=== PATIENT | male | born 1970 | race Caucasian/White ===

== ENCOUNTER 2017-07-02 12:24 | Observation (INO) | payer BC ==
[2017-07-02] MEDS ORDERED: Nitroglycerin 0.4 MG TAB (25 Tab Bottle) ONE (13:00)
--- NOTE | 2017-07-02 14:33 | RAD ---
CHEST PA AND LATERAL: 07/02/17 HISTORY: 46-year-old male with chest pain. Heart size is normal. The lungs are clear. No pneumonia, edema, pleural effusion or other acute proc ess. IMPRESSION: No acute intrathoracic disease. Stable from prior study. POS: [facility]
[2017-07-02 14:35] LABS: #Basophils 0.1 thou/uL (0.0-0.2); #Eosinphils 0.3 thou/uL (0.0-0.7); #Lymphocytes 2.4 thou/uL (1.20-3.40); #Neutrophils 4.2 thou/uL (1.40-6.50); %Basophils 0.7 % (0.0-1.0); %Eosinophils 3.4 % (0.0-10.0); %Lymphocytes 30.1 % (21.0-51.0); %Monocytes 12.2 % (0.0-10.0); Hematocrit 49.3 % (42.0-52.0); Mean Platelet Volume 6.9 fL (7.4-10.4); Red Blood Cell (RBC) Count 5.21 mill/uL (4.70-6.10); White Blood Cell (WBC) Count 7.9 thou/uL (4.8-10.8)
[2017-07-02 14:59] LABS: ALT (SGPT) 37 U/L (8-55); AST (SGOT) 25 U/L (5-34); Alkaline Phosphatase 77 U/L (40-150); Anion Gap 12 mmol/L (10-20); BUN (Urea Nitrogen) 12 mg/dL (8.9-20.6); Bilirubin, Total 0.6 mg/dL (0.2-1.2); Calc. Creatinine Clearance 0 mL/min (70-130); Calcium 9.6 mg/dL (7.8-10.44); Carbon Dioxide 23 mmol/L (22-29); Chloride 107 mmol/L (98-107); Estimated GFR-MDRD 64; Globulin 3.1 g/dL (2.4-3.5); Protein, Total 7.4 g/dL (6.0-8.3)
[2017-07-02 15:02] LABS: Troponin I Less than 0.010 ng/mL (< 0.028)
[2017-07-02 17:38] LABS: Troponin I 0.031 ng/mL (< 0.028)
[2017-07-02] MEDS ORDERED: Acetaminophen 325 MG TAB PO PRN (18:37)
[2017-07-02] MEDS ORDERED: Bisacodyl 5 MG TAB PO PRN (18:37)
[2017-07-02] MEDS ORDERED: Acetaminophen 650 MG Suppository PR PRN (18:37)
[2017-07-02] MEDS ORDERED: Nitroglycerin 0.4 MG TAB (25 Tab Bottle) PO PRN (18:37)
[2017-07-02] MEDS ORDERED: Aspirin 325 MG TAB PO SCH (19:00)
--- NOTE | 2017-07-02 19:17 | HP ---
PRIMARY CARE PHYSICIAN: Mehrdad León M.D. CHIEF COMPLAINT: Chest pain. HISTORY OF PRESENT ILLNESS: Mr. Gilliland is a pleasant 46-year-old gentleman who was seen at [facility] on 07/02/2017. He reports that he was working with his motorcycle when he developed pain across his mid chest. He describes it as pressure-like sensation, 8/10 at its worst, initially steady, subsequent on and off, no known aggravating factors, eventually relieved with nitrates. It was accompanied by shortness of breath. It is not accompanied by nausea or lightheadedness. It lasted a total of approximately 2 hours. It was not radiating, but it was accompanied by tingling in his lower extremities. REVIEW OF SYSTEMS: The following complete review of systems was negative, unless otherwise mentioned in the HPI or below: Constitutional: Weight loss or gain, sense of well-being, ability to conduct usual activities, exercise tolerance. Skin/Breast: Rash, itching, changes in hair growth or loss, nail changes, breast lumps, tenderness, swelling, nipple discharge. Eyes: Vision, double vision, tearing, blind spots, pain. ENT/Mouth: Headaches (location, time of onset, duration, precipitating factors), vertigo, lightheadedness, injury. Vision, double vision, tearing, blind spots, pain, nose bleeding, colds , obstruction, discharge, dental difficulties, gingival bleeding, dentures, neck stiffness, pain, tenderness, masses in thyroid or other areas. Cardiovascular: Precordial pain, substernal distress, palpitations, syncope, dyspnea on exertion, orthopnea, nocturnal paroxysmal dyspnea, edema, cyanosis, hypertension, heart murmurs, varicosities, phlebitis, claudication. Respiratory : Pain, shortness of breath, wheezing, stridor, cough, hemoptysis, fever or night sweats. Gastrointestinal: Poor appetite, dysphagia, indigestion, abdominal pain, heartburn, eructation, nausea, vomiting, hematemesis, jaundice, constipation, or diarrhea, abnormal stools (bonita-colored, tarry, bloody, greasy , foul smelling), flatulence, hemorrhoids, recent changes in bowel habits. Genitourinary: Urgency, frequency, dysuria, nocturia, hematuria, polyuria, oliguria, unusual (or change in) color of urine, stones, hesitancy, change in size of stream, dribbling, acute retention or incontinence, libido, potency. Musculoskeletal: Pain, swelling, redness or heat of muscles or joints, limitation, of motion, muscular weakness, atrophy, cramps. Neurologic/ Psychiatric: Convulsions, paralyses, tremor, incoordination, paresthesias, difficulties with memory of speech, sensory or motor disturbances, or muscular coordination (ataxia, tremor), emotional problems, anxiety, depression, previous psychiatric care, unusual perceptions, hallucinations. Allergy/ Immunologic: Skin rash, anemia, bleeding tendency, polydipsia, polyuria, intolerance to heat or cold. PAST MEDICAL HISTORY: Significant for dyslipidemia, coronary artery disease. He had a cardiac catheterization on 03/29/2017, which showed a previous stent in proximal LAD as well as a 20% stenosis in the proximal circumflex, 7 mm length. He was advised medical management and aggressive risk factor management. PAST SURGICAL HISTORY: Significant for appendectomy and PCI with cardiac stent x1. FAMILY HISTORY: No family history of premature coronary artery disease. SOCIAL HISTORY: The patient drinks alcohol occasionally. He denies recreational drug use. He smokes half a pack of cigarettes a day. ALLERGIES: CODEINE and CINNAMON. CURRENT MEDICATIONS: Aspirin 325 mg daily, atorvastatin 80 mg daily, metoprolol 12.5 mg 2 times a day. He reports that instead of taking it 2 times a day, he is taking at 25 mg daily. PHYSICAL EXAMINATION: GENERAL: Mr. Gilliland is awake and alert, not in acute distress. VITAL SIGNS: Blood pressure is 136/78, pulse is 76, he is breathing at rate of 17 and saturating 98% on room air. He is afebrile. EYES: No scleral icterus. No conjunctival pallor. ENT: Moist mucosal membranes, no oropharyngeal erythema or exudates. NECK: Supple, nontender, normal range of movement, trachea is midline. RESPIRATORY: Accessory muscles of breathing are not active. Chest wall movements are symmetric bilaterally. LUNGS: Clear to auscultation without wheeze, rhonchi or crepitations. ABDOMEN: Soft, nontender, bowel sounds are heard, no hepatomegaly, no splenomegaly. CARDIOVASCULAR: S1 and S2 are heard, regular. Peripheral pulses palpable. No carotid bruit, no pericardial rub. NEUROLOGIC: Cranial nerves II-XII are intact. Deep tendon reflexes are 2+. MUSCULOSKELETAL: Power is 5/5 in all 4 extremities. Normal range of movement at all major extremity joints. SKIN: No rashes or subcutaneous nodules. He has several tattoos. LYMPHATIC: No cervical lymphadenopathy. PSYCHIATRIC: Normal mood, normal affect, patient is oriented to person, place, and time. LABORATORY DATA: Mr. Gillliand's labs and investigations were reviewed. I reviewed his electrocardiogram, which shows normal sinus rhythm, no ST changes to suggest an acute coronary syndrome. I also reviewed his chest x-ray, which does not show any pulmonary infiltrates. Laboratory investigations show an unremarkable CBC, normal comprehensive metabolic profile and troponin I which was normal at 1425 hours, but climbed into an indeterminate range at 1708 hours. BNP is normal. ASSESSMENT AND PLAN: Mr. Gilliland is a pleasant 46-year-old gentleman who was seen at [facility] on 07/02/2017. His problem list includes: 1. Chest pain: Etiology unclear. He had relatively normal cardiac catheterization in 03/2017. However, his symptoms being relieved by nitrospray as well as indeterminate troponin I are reasons he is being admitted to the hospital on observation status for telemetry monitoring and for rechecking troponin. We will also recheck D-dimer to rule out pulmonary embolism. 2. Dyslipidemia: Continue atorvastatin. 3. Hypertension: The patient has been advised to take metoprolol as directed. He reports that he is unable to split his metoprolol tablet in half. He may need to be changed to metoprolol succinate at the time of discharge to ensure around the clock beta trisha activity. 5. Tobacco abuse: The patient has been counseled regarding tobacco cessation. We will start nicotine replacement therapy. Many thanks for allowing me to participate in your patient's care. Please feel free to contact me with any questions or concerns. LEVEL OF RISK: High. LEVEL OF COMPLEXITY: High. MTDD
[2017-07-02 19:40] VITALS: BMI 24.5
[2017-07-02 20:18] LABS: Troponin I 0.105 ng/mL (< 0.028)
[2017-07-02] MEDS: Metoprolol Tartrate 25 MG TAB PO SCH (20:47)
[2017-07-02] MEDS: Atorvastatin Calcium 40 MG TAB PO SCH (20:47)
[2017-07-02] MEDS: Nicotine 14 MG PATCH TD SCH (22:50)
[2017-07-02 23:12] LABS: Amphetamine Not Detected (NotDetected); Methadone Not Detected (NotDetected); Methamphetamine Not Detected (NotDetected)
[2017-07-03 04:34] LABS: #Basophils 0.1 thou/uL (0.0-0.2); #Eosinphils 0.3 thou/uL (0.0-0.7); #Lymphocytes 2.4 thou/uL (1.20-3.40); #Monocytes 0.8 thou/uL (0.11-0.59); #Neutrophils 2.6 thou/uL (1.40-6.50); %Basophils 1.9 % (0.0-1.0); %Eosinophils 5.5 % (0.0-10.0); %Lymphocytes 38.8 % (21.0-51.0); Hematocrit 46.1 % (42.0-52.0); Mean Platelet Volume 6.8 fL (7.4-10.4); Red Blood Cell (RBC) Count 4.88 mill/uL (4.70-6.10); White Blood Cell (WBC) Count 6.3 thou/uL (4.8-10.8)
[2017-07-03 04:58] LABS: Anion Gap 12 mmol/L (10-20); BUN (Urea Nitrogen) 17 mg/dL (8.9-20.6); Calc. Creatinine Clearance 92 mL/min (70-130); Carbon Dioxide 25 mmol/L (22-29); Chloride 105 mmol/L (98-107); Estimated GFR-MDRD 64
[2017-07-03] MEDS ORDERED: Enoxaparin Sodium 40 MG/0.4 ML SYRINGE SC SCH (09:00)
[2017-07-03] MEDS: Metoprolol Tartrate 25 MG TAB PO SCH ×2 (10:19→20:23)
[2017-07-03] MEDS: Aspirin 325 MG TAB PO SCH (10:19)
[2017-07-03 12:15] LABS: Troponin I 0.416 ng/mL (< 0.028)
[2017-07-03] MEDS ORDERED: Communication Order-Pharmacy FS SCH (12:45)
[2017-07-03] MEDS ORDERED: Enoxaparin Sodium 100 MG/ML SYRINGE SC SCH (13:00)
--- NOTE | 2017-07-03 13:52 | CON ---
DATE OF ADMISSION: 07/02/2017 DATE OF CONSULTATION: 07/03/2017 INDICATION FOR CONSULTATION: A 46-year-old gentleman with a history of known coronary artery diseas e, status post angioplasty and stent placement to the left anterior descending with chest pain and a bnormal cardiac enzymes. HISTORY OF PRESENT ILLNESS: This is a very unfortunate 46-year-old gentleman who continues to smoke , has a history of coronary artery disease and hypertension as well as family history of coronary ar norma disease who presented to the emergency room after having chest pain which started yesterday scott und 11:00 when he was working on his motorcycle. He originally thought was some chest discomfort. He presented to the emergency room due to his previous history of coronary disease. He was given ni troglycerin and I believe the pain has resolved since he was given nitroglycerin, but previously he did not have any relief of the pain when he stopped working on the motorcycle and just rested. He d id not take any nitroglycerin at home. He describes now to having the discomfort as being a slight faint, dull, but still has some discomfort. EKG is unremarkable. His cardiac enzymes have trended upwards, the initial set was negative at 0.01. The second set was 0.031 and the third set was 0.010 5 and the fourth set is now 0.416. The MBs are negative. His EKG does not show any significant ST segment elevations or T-wave inversions that would indicate acute ischemic event. He did undergo [facility] catheter[facility] on 04/17/2017. He had a stent in the proximal left anterior descending artery which was a 4.0 x 20 mm stent placed in 05/2014. He also has a left circumflex stenosis about 20% ejection fraction is 55%. The right coronary was free of any significant disease. It was not clear ed by the results of the cardiac catheterization. If there was any evidence of in-stent restenosis or further disease. Ejection fraction was 55%. At this time, we will continue to monitor him very carefully for any changes in his EKG or either for the further elevation of cardiac enzymes. PAST MEDICAL HISTORY: Significant for coronary artery disease, hyperlipidemia, hypercholesterolemia , history of angioplasty, stent placement, history of appendectomy. SOCIAL HISTORY: He is . He continues to smoke. He says he is trying to stop smoking, but h e at least still continues to smoke at least half a pack a day. FAMILY HISTORY: Noncontributory at this time. ALLERGIES: CODEINE. MEDICATIONS: At home include atorvastatin, metoprolol, aspirin. At this time, he has been placed o n aspirin as well as atorvastatin, Lovenox at 40, will increase up to 1 mg per mg/kg b.i.d., metopro lol 12.5 mg b.i.d., and a Nicoderm patch and nitroglycerin p.r.n. REVIEW OF SYSTEMS: Twelve-point review of systems is unremarkable. He denies any new HEENT complai nts such as visual changes, hearing loss or tinnitus. No pulmonary complaints such as asthma, emphy sema or bronchitis. No GI complaints such as nausea, vomiting, diarrhea. No complaints such as dysuria, polyuria, or hematuria. No musculoskeletal complaints such as myalgias restrictions or art hralgias. Neurologic: No history of seizures or syncope. He mainly complains of the chest discomf ort. PHYSICAL EXAMINATION: GENERAL: Reveals a well-developed, well-nourished gentleman. VITAL SIGNS: Blood pressure 117/76, heart rate is 64 and regular, temperature is afebrile, respirat ory rate 16, O2 saturation 96%. HEENT: Reveals the head to be normocephalic and atraumatic. NECK: Carotid pulses are present. There were no bruits, no JVD. Thyroid is not enlarged. Oral mu cosa was pink and moist. CHEST: Clear to auscultation without rales, rhonchi or wheezing. CARDIOVASCULAR: Exam reveals a regular rate and rhythm, normal S1, S2. There is no S3, S4. There were no significant murmurs, heaves, thrills, bruits or rubs noted. ABDOMEN: Soft and nontender with positive bowel sounds. No organomegaly or masses noted. Femoral pulses are present. EXTREMITIES: Showed no clubbing, cyanosis or edema. Pedal pulses are also present. NEUROLOGIC: He does have multiple tattoos, which did have no evidence of infection. Neurologically , he appears to be intact. SKIN: Warm and dry. LABORATORY DATA: As noted above. Creatinine is 1.22, potassium 4.0. Hemoglobin 15.4. Cardiac enz ymes are as noted above. IMPRESSION: 1. Chest pain with abnormal cardiac enzymes with a history of coronary artery disease, angioplasty and stent placement to the proximal left anterior descending artery. We will continue to follow him very carefully. We will add full dose Lovenox and will continue with the nitroglycerin paste. Magalys uld he develop further pain or EKG changes that he may need to undergo urgent cardiac catheterizatio n, at this time appears to be relatively stable. He may need to undergo cardiac catheterization meir orrow for further evaluation of the proximal left anterior descending artery stent. If this has bec ome worse, he may need to have a repeat stent placement if there is narrowing within the stent. Oth erwise, he may need eventually undergo bypass surgery with a left internal mammary artery to the lef t anterior descending artery due to the proximity to the left main of the previously placed stent. 2. History of tobacco abuse. He will need some type of counseling at least assistance to help him to stop smoking. He said he has been trying, but continues to smoke a half a pack a day. 3. History of hypercholesterolemia. There was no LDL check at this time. We may need to do that a s an outpatient. 4. Hypertension. This is well controlled at the present time. Further care of the patient will be determined by Dr. Suero when he sees the patient tomorrow. In the meantime, we will keep the p atient n.p.o. for possible cardiac catheterization tomorrow.
--- NOTE | 2017-07-03 14:47 | PDOC.PN ---
- Subjective Encounter Start Date: 07/03/17 Encounter Start Time: 11:00 -: old records requested/rev Pt seen and examined. Chart reviewe din its entrety. Case discussed with Dr Hernandez face to face. Pt had CP last evneing similar in character to his previous episode with LAD stend, but not as severe. biomarkaers have trended up and have now exceeded the NSTMEI threshold. Dr Prince has seen since i have and prior to this note and has ordered another set of markers, and made NPO. possible PTCA tomorrow, later today if he has more CP, lovenox given. no f/C, no cough, no SOB, no sputum production. No N/V/D/C 10 point ROS performed and neg for all systems except as above - Objective Resuscitation Status: FULL MAR Reviewed: Yes Vital Signs & Weight: Vital Signs (12 hours) Temp Pulse Resp BP Pulse Ox 07/03/17 11:42 98.0 F 64 16 117/76 96 07/03/17 08:21 97.5 F L 64 16 07/03/17 07:25 97.5 F L 64 16 115/70 96 07/03/17 04:00 98.2 F 72 14 110/65 96 Weight Weight 191 lb 9.6 oz I&O: 07/02/17 07/03/17 07/04/17 06:59 06:59 06:59 Intake Total 720 250 Output Total 200 Balance 520 250 Result Diagrams: 07/03/17 04:05 07/03/17 04:05 Radiology Reviewed by me: Yes EKG Reviewed by me: Yes Phys Exam - Physical Examination Constitutional: NAD HEENT: PERRLA, moist MMs, sclera anicteric, oral pharynx no lesions Neck: no nodes, no JVD, supple, full ROM Respiratory: no wheezing, no rales, no rhonchi, clear to auscultation bilateral Cardiovascular: RRR, no significant murmur, no rub Gastrointestinal: soft, non-tender, no distention, positive bowel sounds Musculoskeletal: no edema, pulses present Neurological: non-focal, normal sensation, moves all 4 limbs Lymphatic: no nodes Psychiatric: normal affect, A&O x 3 Skin: no rash, normal turgor, cap refill <2 seconds Dx/Plan (1) CAD (coronary artery disease) Code(s): I25.10 - ATHSCL HEART DISEASE OF [place] CORONARY ARTERY W/O ANG PCTRS Status: Acute Qualifiers: Coronary Disease-Associated Artery/Lesion type: [place] artery [place] vs. transplanted heart: [place] heart Associated angina: with unstable angina Qualified Code(s): I25.110 - Atherosclerotic heart disease of [place] coronary artery with unstable angina pectoris (2) HTN (hypertension) Code(s): I10 - ESSENTIAL (PRIMARY) HYPERTENSION Status: Chronic Qualifiers: Hypertension type: essential hypertension Qualified Code(s): I10 - Essential (primary) hypertension (3) HLD (hyperlipidemia) Code(s): E78.5 - HYPERLIPIDEMIA, UNSPECIFIED Status: Chronic Qualifiers: Hyperlipidemia type: unspecified Qualified Code(s): E78.5 - Hyperlipidemia , unspecified (4) NSTEMI (non-ST elevated myocardial infarction) Code(s): I21.4 - NON-ST ELEVATION (NSTEMI) MYOCARDIAL INFARCTION Status: Acute - Plan cont current plan of care * .
[2017-07-03 16:06] LABS: Troponin I 0.422 ng/mL (< 0.028)
[2017-07-03 20:10] LABS: Critical Call Chem Troponin I RESULT DECREASING; Troponin I 0.377 ng/mL (< 0.028)
[2017-07-03] MEDS: Atorvastatin Calcium 40 MG TAB PO SCH (20:23)
[2017-07-03] MEDS: Nicotine 14 MG PATCH TD SCH (20:29)
[2017-07-04] MEDS: Aspirin 325 MG TAB PO SCH (05:36)
[2017-07-04] MEDS: Metoprolol Tartrate 25 MG TAB PO SCH (05:36)
[2017-07-04 05:39] LABS: #Basophils 0.1 thou/uL (0.0-0.2); #Eosinphils 0.3 thou/uL (0.0-0.7); #Lymphocytes 2.7 thou/uL (1.20-3.40); #Monocytes 0.7 thou/uL (0.11-0.59); %Basophils 1.1 % (0.0-1.0); %Eosinophils 4.6 % (0.0-10.0); %Lymphocytes 46.7 % (21.0-51.0); %Monocytes 12.6 % (0.0-10.0); Hematocrit 46.3 % (42.0-52.0); Mean Platelet Volume 7.1 fL (7.4-10.4); Red Blood Cell (RBC) Count 4.91 mill/uL (4.70-6.10); White Blood Cell (WBC) Count 5.7 thou/uL (4.8-10.8)
[2017-07-04 06:03] LABS: Anion Gap 11 mmol/L (10-20); BUN (Urea Nitrogen) 14 mg/dL (8.9-20.6); Calc. Creatinine Clearance 109 mL/min (70-130); Calcium 8.7 mg/dL (7.8-10.44); Carbon Dioxide 24 mmol/L (22-29); Chloride 106 mmol/L (98-107); Estimated GFR-MDRD 77
[2017-07-04] MEDS ORDERED: Fentanyl 100 MCG/2 ML VIAL ONE (07:42)
[2017-07-04] MEDS ORDERED: Nitroglycerin 100MG/250ML BOT 250 ML ONE (07:45)
[2017-07-04] MEDS ORDERED: Midazolam HCl 2 mg/2 ml Vial ONE (07:45)
[2017-07-04] MEDS ORDERED: Nitroglycerin 0.4 MG TAB (25 Tab Bottle) SL PRN (08:56)
[2017-07-04] MEDS ORDERED: Sodium Chloride 0.9% 200 ML IV SCH (09:00)
[2017-07-04 11:06] VITALS: BP 115/72; TEMP 97.7
[2017-07-04] MEDS ORDERED: Iopamidol 370 76% 100 ML VIAL ONE (14:08)
--- NOTE | 2017-07-04 16:01 | DIS ---
DATE OF ADMISSION: 07/02/2017 DATE OF DISCHARGE: 07/04/2017 DISCHARGE DIAGNOSES: 1. Non-ST elevation myocardial infarction. 2. Coronary artery vasospasm. 3. History of coronary artery disease. 4. Hyperlipidemia. 5. Hypertension. 6. Ongoing tobacco abuse. CONSULTATION: Cardiology initially Dr. Orr followed by Dr. Suero. PROCEDURES: Percutaneous transluminal coronary angiography by Dr. Suero on 07/04/2017. HISTORY AND PHYSICAL: Mr. Gilliland is a 46-year-old male who presented to the emergency department on 07/02/2017 for complaints of chest pain. He had negative workup initially, but did have a fairly de cent story and a history of chest pain due to coronary artery disease. He was subsequently admitted to the hospital. HOSPITAL COURSE: The patient seen and examined by Dr. Alfonso, he was placed on cardioprotective medi cations overnight, Cardiology was consulted, and serial cardiac biomarkers were obtained. The patient did well overnight with no further chest pain. On 07/03/2017, he was seen by Dr. Orr and serial cardiac biomarker did show an uptrend in the tropo nins. That afternoon troponin did peak at 0.4, and so arrangements were made for him to undergo coronary a ngiography in the morning on 07/04/2017. Overnight on 07/03/2017 to 07/04/2017 no further pain, went to the laboratory equipment cleaner early, where he was foun d to have vasospasm with slow flow in the LAD that responded to intraluminal nitroglycerin. He was subsequently encouraged to stop smoking, added long-acting nitroglycerin to his regimen, and cleared for discharge once his time of lying flat was completed. PHYSICAL EXAMINATION: The patient was seen and examined on the day of discharge. Discharge plan an d disposition were discussed with the patient [id number] at the bedside in the presence of his wif e. DISCHARGE MEDICATIONS: 1. Isosorbide mononitrate 30 mg p.o. daily. 2. Ibuprofen 800 mg p.o. q.8 hours p.r.n. 3. Lipitor 80 mg p.o. at bedtime. 4. Aspirin 325 mg daily. 5. Metoprolol 12.5 mg p.o. b.i.d. I believe this was decreased in response to adding in the Imdur. 6. Nitrostat 0.4 mg sublingual q.5 minutes. Prescription sent for the lower dose of Lopressor, Nitrostat, and isosorbide mononitrate. FOLLOWUP APPOINTMENTS: 1. Primary care physician within a week. 2. Dr. Suero in 2-3 weeks. DISCHARGE ACTIVITY: Per cardiopulmonary limits. DISCHARGE DIET: Heart healthy. DISCHARGE CONDITION: Stable. DISPOSITION: Being discharged to home via private vehicle. INSTRUCTIONS: 1. To quit smoking. 2. Return to emergency department or call Dr. Suero for return of chest pain.
== END 2017-07-04 14:24 | disposition home or self-care (01) ==
LOC: ERS 12:24 → 2SW 18:10
PROVIDERS: ADMIT Internal Medicine; ATTEND Internal Medicine
DX: I21.4 Non-ST elevation (NSTEMI) myocardial infarction (principal); I10 Essential (primary) hypertension; I25.119 Atherosclerotic heart disease of native coronary artery with unspecified angina pectoris; F17.210 Nicotine dependence, cigarettes, uncomplicated; E78.5 Hyperlipidemia, unspecified; Z79.82 Long term (current) use of aspirin; Z79.899 Other long term (current) drug therapy; Z88.5 Allergy status to narcotic agent; Z88.8 Allergy status to other drugs, medicaments and biological substances; Z98.61 Coronary angioplasty status; Z95.818 Presence of other cardiac implants and grafts; Z90.49 Acquired absence of other specified parts of digestive tract; Z98.890 Other specified postprocedural states
CPT/HCPCS: 36415; 71020; 76942; 80048; 80053; 80306; 82553; 83880; 84484; 85025; 85379; 93005; 93458; 93798; 96372; 99152; C1769; G0378; J1644; J1650; J2250; J3010

== ENCOUNTER 2020-01-15 13:43 | Observation (INO) | payer BC ==
--- NOTE | 2020-01-15 14:26 | RAD ---
EXAM: Chest PA and lateral: HISTORY: Chest pain, midsternal COMPARISON: 07/02/2017 FINDINGS: Heart: Normal cardiac silhouette Aorta: Unremarkable Pulmonary vessels: Normal Costophrenic angles: Costophrenic angles are clear. Lungs: No consolidation or masses. Pneumothorax: No pneumothorax Osseous structures: No osseous abnormalities IMPRESSION: No acute cardiopulmonary process.
[2020-01-15 14:50] LABS: #Eosinphils 0.2 thou/uL (0.0-0.7); #Lymphocytes 1.9 thou/uL (1.20-3.40); #Monocytes 0.7 thou/uL (0.11-0.59); #Neutrophils 4.9 thou/uL (1.40-6.50); %Basophils 0.4 % (0.0-1.0); %Eosinophils 2.5 % (0.0-10.0); %Lymphocytes 24.5 % (21.0-51.0); %Monocytes 9.3 % (0.0-10.0); %Neutrophils 63.3 % (42.0-75.0); Hemoglobin 15.5 g/dL (14.0-18.0); Mean Corpuscular HGB CONC 33.3 g/dL (32.0-36.0); Mean Corpuscular Hemoglobin 30.4 pg (27.0-31.0); Mean Corpuscular Volume 91.3 fL (78.0-98.0); Mean Platelet Volume 7.1 fL (7.4-10.4); Platelet Count 231 thou/uL (130-400); RBC Distribution Width 12.1 % (11.5-14.5); Red Blood Cell (RBC) Count 5.11 mill/uL (4.70-6.10); White Blood Cell (WBC) Count 7.7 thou/uL (4.8-10.8)
[2020-01-15 15:14] LABS: ALT (SGPT) 42 U/L (8-55); AST (SGOT) 27 U/L (5-34); Albumin 4.4 g/dL (3.5-5.0); Alkaline Phosphatase 101 U/L (40-110); Anion Gap 14 mmol/L (10-20); BUN (Urea Nitrogen) 15 mg/dL (8.9-20.6); Bilirubin, Total 0.7 mg/dL (0.2-1.2); CK (CPK) 361 U/L (30-200); Calc. Creatinine Clearance 0 mL/min (70-130); Calcium 9.5 mg/dL (7.8-10.44); Carbon Dioxide 23 mmol/L (22-29); Chloride 106 mmol/L (98-107); Estimated GFR-MDRD 63; Glucose 91 mg/dL (70-105); Lipase 21 U/L (8-78); Potassium 3.9 mmol/L (3.5-5.1); Protein, Total 7.4 g/dL (6.0-8.3); Sodium 139 mmol/L (136-145)
[2020-01-15] MEDS ORDERED: Aspirin Chewable 81 MG TAB ONE (15:48)
[2020-01-15 18:49] LABS: Troponin I 0.059 ng/mL (< 0.028)
--- NOTE | 2020-01-15 19:29 | HP ---
PRIMARY CARE PHYSICIAN: Mehrdad León MD CHIEF COMPLAINT: Chest pain. HISTORY OF PRESENT ILLNESS: The patient is a very pleasant 49-year-old male with past medical history significant for an OR in 2014 where he received one stent to the LAD and another OR in 2017 treated medically. He is a patient of Dr. Suero who presents to the ER today for chest pain that started after he was shoveling stone outside in the heat. He does state this felt like the second heart attack that he had in 2017. When the pain occurred it felt like he had been kicked in the chest. He became clammy, had numbness to his right leg and tingling in his right hand, and he experienced shortness of breath but no nausea. He took one sublingual nitroglycerin and stated that it helped after about 45 minutes. He then proceeded to take a shower and drove himself to the ER. Of note, he had a negative stress test August 2019 as part of his job requirement. In the ER today, they performed an EKG and lab work along with a chest x-ray. He will be admitted to telemetry under observation status. PAST MEDICAL HISTORY: OR in 2014 with one stent to the LAD and another OR in 2017, hyperlipidemia. PAST SURGICAL HISTORY: Stent placement and an appendectomy. ALLERGIES: CODEINE AND CINNAMON CAUSES ANGIOEDEMA. MEDICATIONS: 1. Atorvastatin 80 mg p.o. at bedtime. 2. Metoprolol tartrate 12.5 mg p.o. b.i.d. 3. Aspirin 325 mg p.o. daily. 4. Isosorbide mononitrate 30 mg q.a.m. 5. Nitroglycerin sublingual as needed. SOCIAL HISTORY: The patient lives at home with his . He is a driver lifter of sanitation truck. He drinks on average every weekend socially but not to excess. He no longer smokes , he quit in 2017 after his heart attack, but still continues to dip daily. He goes through a can every three days. He denies any illegal drug usage. FAMILY HISTORY: His mother from cancer. REVIEW OF SYSTEMS: All other review of systems are negative unless noted in the HPI. PHYSICAL EXAMINATION: VITAL SIGNS: Blood pressure 122/78, pulse 74, respiratory rate 16, temp 98.8, O2 saturation 98% on room air. GENERAL: The patient is pleasant and appears his stated age. HEAD: Atraumatic, normocephalic. NECK: Normal range of motion. Trachea midline. No lymphadenopathy. CARDIOVASCULAR: Regular rate and rhythm. No murmurs, no gallops, no rubs. RESPIRATORY: Clear to auscultation bilaterally. No wheezing. No rales. EXTREMITIES: Normal range of motion. No edema noted. NEUROLOGIC: Awake, alert, and oriented. PSYCH: Normal affect. Normal behavior. LABORATORY DATA: EKG shows sinus rhythm, pulse of 76. BNP 10.7. Lipase 21. CK 361. Sodium 139, potassium 3.9, chloride 106, BUN 15, creatinine 1.21, estimated GFR is 30. Glucose 91. White blood cells 7.7, hemoglobin 15.5, hematocrit 46.6. Troponin negative. Chest x-ray showed no acute cardiopulmonary process. IMPRESSION: 1. Chest pain, acute, stable. 2. Hyperlipidemia, chronic, stable. PLAN: GI prophylaxis with Pepcid 20 mg p.o. b.i.d. DVT prophylaxis, Lovenox 40 mg subcu daily. We will continue to trend his troponins throughout the night while we monitor him on telemetry. He had a recent negative stress test in August that was completed because it was required for his job. We will consult his mainframe analyst, Dr. Suero, in the morning to see him, it is especially concerning that it feels like the past heart attack he had. He will be on a heart healthy diet until midnight and then NPO for his cardiology consult. The patient wishes to be a full code. His designated decision maker is his , Jocelyne Gilliland. Her phone number is [phone]. The patient was discussed with Dr. Hancock. Job ID: [id number] [facility]
[2020-01-15 21:49] LABS: Troponin I 0.179 ng/mL (< 0.028)
[2020-01-15] MEDS ORDERED: Acetaminophen 325 MG TAB PO PRN (22:08)
[2020-01-15] MEDS ORDERED: Nitroglycerin 0.4 MG TAB (25 Tab Bottle) PO PRN (22:08)
[2020-01-15] MEDS ORDERED: Famotidine 20 MG TAB PO SCH (22:45)
[2020-01-15] MEDS ORDERED: Nitroglycerin 2% Ointment 1 INCH/1 GM Packet TOP SCH (22:45)
[2020-01-15] MEDS ORDERED: Metoprolol Tartrate 25 MG TAB PO SCH (22:45)
[2020-01-15] MEDS: Sodium Chloride 0.9% 1,000 ML IV SCH (22:50)
[2020-01-16 04:50] LABS: #Eosinphils 0.2 thou/uL (0.0-0.7); #Lymphocytes 2.2 thou/uL (1.20-3.40); #Monocytes 0.7 thou/uL (0.11-0.59); #Neutrophils 2.6 thou/uL (1.40-6.50); %Basophils 0.6 % (0.0-1.0); %Eosinophils 4.3 % (0.0-10.0); %Lymphocytes 37.8 % (21.0-51.0); %Monocytes 12.2 % (0.0-10.0); %Neutrophils 45.2 % (42.0-75.0); Hemoglobin 14.3 g/dL (14.0-18.0); Mean Corpuscular HGB CONC 32.9 g/dL (32.0-36.0); Mean Corpuscular Hemoglobin 30.6 pg (27.0-31.0); Mean Corpuscular Volume 92.9 fL (78.0-98.0); Mean Platelet Volume 7.2 fL (7.4-10.4); Platelet Count 215 thou/uL (130-400); RBC Distribution Width 12.3 % (11.5-14.5); Red Blood Cell (RBC) Count 4.67 mill/uL (4.70-6.10); White Blood Cell (WBC) Count 5.8 thou/uL (4.8-10.8)
[2020-01-16 05:08] LABS: Anion Gap 11 mmol/L (10-20); BUN (Urea Nitrogen) 15 mg/dL (8.9-20.6); Calc. Creatinine Clearance 107 mL/min (70-130); Calcium 8.7 mg/dL (7.8-10.44); Carbon Dioxide 24 mmol/L (22-29); Chloride 109 mmol/L (98-107); Estimated GFR-MDRD 70; Glucose 126 mg/dL (70-105); Potassium 3.6 mmol/L (3.5-5.1); Sodium 140 mmol/L (136-145)
[2020-01-16] MEDS: Nitroglycerin 2% Ointment 1 INCH/1 GM Packet TOP SCH ×2 (05:18→14:42)
[2020-01-16] MEDS: Sodium Chloride 0.9% 1,000 ML IV SCH ×3 (08:25→20:21)
[2020-01-16] MEDS ORDERED: Aspirin 325 mg Enteric Coated Tablet PO SCH (09:00)
[2020-01-16] MEDS ORDERED: Enoxaparin Sodium 40 MG/0.4 ML SYRINGE SC SCH (09:00)
[2020-01-16] MEDS ORDERED: Sodium Chloride 0.9% 1,000 ML IV SCH ×2 (09:30→14:00)
[2020-01-16] MEDS ORDERED: Iopamidol 370 76% 100 ML VIAL ONE (09:44)
[2020-01-16] MEDS: Famotidine 20 MG TAB PO SCH ×2 (10:31→20:22)
[2020-01-16] MEDS: Metoprolol Tartrate 25 MG TAB PO SCH ×2 (10:44→20:22)
--- NOTE | 2020-01-16 10:59 | CON ---
DATE OF CONSULTATION: REASON FOR CONSULTATION: Unstable angina. HISTORY OF PRESENT ILLNESS: A very pleasant 49-year-old gentleman, who was seen and evaluated in the past. He has a previous history of a stent to the LAD. He underwent coronary angiography in 2018 and was found to have a patent stent to the LAD. No other disease present. He did have slow flow suggesting endothelial dysfunction. He recently presented with acute onset chest pain. It lasted for 1.5 hours. Nitroglycerin seemed to make the pain better. He presented to the emergency room with the above. His troponin was slightly elevated at 0.179. PAST MEDICAL HISTORY: CAD, status post stent placement; hypertension; previous tobacco abuse; appendectomy. FAMILY HISTORY: Positive for CAD. HOME MEDICATIONS: Include; 1. Atorvastatin. 2. Metoprolol. 3. Aspirin. 4. Isosorbide. PHYSICAL EXAMINATION: Vital Signs: Blood pressure 120/73, pulse 67, temperature 97.5. General: The patient is a pleasant gentleman, in no acute distress, appears stated age. Head, Eyes, Ears, Nose and Throat: Sclerae without icterus. Mouth: Moist mucous membranes, normal palate. Neck: No jugular venous distention. Carotid upstroke is brisk. No bruits bilaterally. Lungs: Clear to auscultation. Heart: Regular rate and rhythm, normal S1 and S2. Abdomen: Soft, nontender, nondistended. Extremities: No edema. PERTINENT LABORATORY DATA: Peak troponin 0.197. DIAGNOSTIC STUDIES: EKG, normal sinus rhythm, normal EKG. IMPRESSION: 1. Unstable angina. 2. Coronary artery disease. 3. Status post stent placement. RECOMMENDATIONS: I presented with several options to Mr. Gilliland. His symptoms appear to be acute onset. I am concerned about unstable angina. I discussed proceeding with a noninvasive stress study versus coronary angiography. Mr. Gilliland did state he had a treadmill stress study performed that was within normal limits in August. If this is truly unstable angina, this is likely a new finding. After discussing risks and benefits of proceeding with coronary angiography versus noninvasive stress study, the patient opted for coronary angiography. I discussed the procedure in full detail with Mr. Gilliland. Risks included not limited to the following . All questions were answered. Given the above, the patient agreed to proceed with above procedure. Also discussed drug-coated versus nondrug-coated stent placement. There were no contraindications and we will proceed if needed. Job ID: [id number]
--- NOTE | 2020-01-16 12:03 | PDOC.HOSPP ---
- Subjective Encounter Date: 01/16/20 Encounter Time: 10:30 Subjective: Mr Gilliland was seen as a follow up for chest pain this morning. He states that he now just has a dull ache in his chest but the overall pain has resolved. Dr. Suero saw him this morning and has scheduled a heart cath for him today . - Objective Vital Signs & Weight: Vital Signs (12 hours) Temp Pulse Resp BP BP Pulse Ox 01/16/20 11:28 98.2 F 63 18 117/67 96 01/16/20 07:20 97.5 F L 67 16 120/73 96 01/16/20 06:53 96 01/16/20 03:25 97.8 F 67 14 107/68 96 Weight Weight 209 lb 3.2 oz I&O: 01/15/20 01/16/20 01/17/20 06:59 06:59 06:59 Intake Total 1267 Output Total 825 Balance 442 Result Diagrams: 01/16/20 04:36 01/16/20 04:36 EKG Reviewed by me: Yes (SR) Hospitalist ROS - Medication Medications: Active Medications Generic Name Dose Route Start Last Admin Trade Name Freq PRN Reason Stop Dose Admin Enoxaparin Sodium 40 mg 01/16/20 09:00 01/16/20 10:31 Lovenox SC Not Given 0900 GREG Famotidine 20 mg 01/16/20 09:00 01/16/20 10:31 Pepcid PO Not Given BID GREG Sodium Chloride 1,000 mls @ 100 mls/hr 01/16/20 10:30 01/16/20 10:32 Normal Saline 0.9% IV Not Given .Q10H GREG Metoprolol Tartrate 12.5 mg 01/16/20 09:00 01/16/20 10:44 Lopressor PO 12.5 mg BID GREG Administration Nitroglycerin 0.5 inch 01/16/20 06:00 01/16/20 05:18 Nitro-Bid 2% Ointment TOP 0.5 inch Q8HR GREG Administration Sodium Chloride 10 ml 01/15/20 22:08 01/16/20 10:31 Flush - Normal Saline IVF Not Given Q12HR GREG - Exam General Appearance: NAD, awake alert Neck: supple, symmetric, no lymphadenopathy Heart: RRR, no murmur, no gallops, no rubs, normal peripheral pulses Respiratory: CTAB, no wheezes, no rales, no ronchi Gastrointestinal: soft, non-tender, non-distended, normal bowel sounds Extremities: no cyanosis, no edema Skin: normal turgor Psychiatric: normal affect, normal behavior Hosp A/P (1) NSTEMI (non-ST elevated myocardial infarction) Code(s): I21.4 - NON-ST ELEVATION (NSTEMI) MYOCARDIAL INFARCTION Status: Acute (2) CAD (coronary artery disease) Code(s): I25.10 - ATHSCL HEART DISEASE OF [place] CORONARY ARTERY W/O ANG PCTRS Status: Chronic Qualifiers: Coronary Disease-Associated Artery/Lesion type: [place] artery [place] vs. transplanted heart: [place] heart Associated angina: with unstable angina Qualified Code(s): I25.110 - Atherosclerotic heart disease of [place] coronary artery with unstable angina pectoris (3) HLD (hyperlipidemia) Code(s): E78.5 - HYPERLIPIDEMIA, UNSPECIFIED Status: Chronic Qualifiers: Hyperlipidemia type: unspecified Qualified Code(s): E78.5 - Hyperlipidemia , unspecified - Plan NSTEMI: troponins were indeterminate last night, had another drawn to see if they had hit their maximum and it resulted positive at 0.660, pt going for a heart cath shortly CAD:heart cath today, NTP in place Hyperlipidemia: continue home medications
[2020-01-16] MEDS ORDERED: Heparin 10,000 UNITS/1 ML VIAL ONE (13:20)
[2020-01-16] MEDS ORDERED: Verapamil 5 MG/2 ML VIAL ONE (13:20)
[2020-01-16] MEDS ORDERED: Nitroglycerin 100MG/250ML BOT 250 ML ONE (13:20)
--- NOTE | 2020-01-16 13:53 | PDOC.HOSPP ---
- Subjective Encounter Date: 01/16/20 Encounter Time: 13:51 Subjective: Mr. Gilliland was seen today in follow-up of chest pain. He says he feels fine now. He denies any shortness of breath or chest pain. - Objective Vital Signs & Weight: Vital Signs (12 hours) Temp Pulse Resp BP BP Pulse Ox 01/16/20 11:28 98.2 F 63 18 117/67 96 01/16/20 07:20 97.5 F L 67 16 120/73 96 01/16/20 06:53 96 01/16/20 03:25 97.8 F 67 14 107/68 96 Weight Weight 209 lb 3.2 oz I&O: 01/15/20 01/16/20 01/17/20 06:59 06:59 06:59 Intake Total 1267 Output Total 825 Balance 442 Result Diagrams: 01/16/20 04:36 01/16/20 04:36 Hospitalist ROS - Medication Medications: Active Medications Generic Name Dose Route Start Last Admin Trade Name Freq PRN Reason Stop Dose Admin Enoxaparin Sodium 40 mg 01/16/20 09:00 01/16/20 10:31 Lovenox SC Not Given 0900 GREG Famotidine 20 mg 01/16/20 09:00 01/16/20 10:31 Pepcid PO Not Given BID GREG Sodium Chloride 1,000 mls @ 100 mls/hr 01/16/20 10:30 01/16/20 10:32 Normal Saline 0.9% IV Not Given .Q10H GREG Metoprolol Tartrate 12.5 mg 01/16/20 09:00 01/16/20 10:44 Lopressor PO 12.5 mg BID GREG Administration Nitroglycerin 0.5 inch 01/16/20 06:00 01/16/20 05:18 Nitro-Bid 2% Ointment TOP 0.5 inch Q8HR GREG Administration Sodium Chloride 10 ml 01/15/20 22:08 01/16/20 10:31 Flush - Normal Saline IVF Not Given Q12HR GREG - Exam Eye: PERRL, anicteric sclera Heart: RRR, no murmur, no gallops, no rubs, normal peripheral pulses Respiratory: CTAB, no wheezes, no rales, no ronchi, normal chest expansion, no tachypnea Gastrointestinal: soft, non-tender, non-distended, normal bowel sounds, no palpable masses, no hepatomegaly Extremities: no cyanosis, no edema Hosp A/P (1) NSTEMI (non-ST elevated myocardial infarction) Code(s): I21.4 - NON-ST ELEVATION (NSTEMI) MYOCARDIAL INFARCTION Status: Acute (2) CAD (coronary artery disease) Code(s): I25.10 - ATHSCL HEART DISEASE OF [place] CORONARY ARTERY W/O ANG PCTRS Status: Chronic Qualifiers: Coronary Disease-Associated Artery/Lesion type: [place] artery [place] vs. transplanted heart: [place] heart Associated angina: with unstable angina Qualified Code(s): I25.110 - Atherosclerotic heart disease of [place] coronary artery with unstable angina pectoris (3) HLD (hyperlipidemia) Code(s): E78.5 - HYPERLIPIDEMIA, UNSPECIFIED Status: Chronic Qualifiers: Hyperlipidemia type: unspecified Qualified Code(s): E78.5 - Hyperlipidemia , unspecified (4) HTN (hypertension) Code(s): I10 - ESSENTIAL (PRIMARY) HYPERTENSION Status: Chronic Qualifiers: Hypertension type: essential hypertension Qualified Code(s): I10 - Essential (primary) hypertension - Plan * Chest pain now known to be NSTEMI- plan is for patient to go for cath today * Continue aspirin Metoprolol, and Nitropaste * HTN- blood pressure is controlled * Dyslipidemia- will check lipid profile in the AM
[2020-01-16] MEDS ORDERED: Nitroglycerin 0.4 MG TAB (25 Tab Bottle) SL PRN (13:56)
[2020-01-16] MEDS ORDERED: Sodium Chloride 0.9% 200 ML IV PRN (13:56)
--- NOTE | 2020-01-16 19:57 | DIS ---
DATE OF ADMISSION: 01/15/2020 DATE OF DISCHARGE: 01/16/2020 DISCHARGE DISPOSITION: The patient is discharged home with . The patient was seen and examined on day of discharge. Denies any new complaints. INPATIENT CONSULT: Cardiology. CLINICAL COURSE: The patient is a 49-year-old male with past medical history of two MIs, one with a stent placement to his LAD and history of hyperlipidemia. He presented to the hospital for chest pain, which began while he was shoveling dirt yesterday, described it as a quick pain that was relieved after 45 minutes after taking a sublingual nitroglycerin. He was monitored on telemetry, and cardiac enzymes were drawn. His highest troponin was 0.660. Cardiology was consulted for him. He did feel like this pain was the same that he had with his second NE. Dr. Suero from Cardiology came and saw him and performed a heart catheterization on him. No interventions were needed during the heart catheterization, and he was cleared by Cardiology to go home after bed rest was completed. FINAL DIAGNOSES: Non-ST segment elevation myocardial infarction and hyperlipidemia. DISCHARGE MEDICATIONS: 1. Lipitor 80 mg p.o. at bedtime. 2. Aspirin 325 mg p.o. at bedtime. 3. Lopressor 12.5 mg p.o. b.i.d. 4. Isosorbide mononitrate 30 mg p.o. at bedtime. 5. Nitrostat 0.4 mg sublingual q.5 minutes p.r.n. chest pain. DISCHARGE INSTRUCTIONS: The patient was encouraged to follow up with his PCP later this week and to follow up with Dr. Suero in 3 to 4 weeks. He was also given activity restrictions regarding post TR band and restrictions for work. He is encouraged to continue to take his medications and to stop tobacco products. TIME SPENT: Total time coordinating the discharge of this patient was 25 minutes. The patient was discussed with Dr. Hancock. Job ID: [id number]
[2020-01-16 20:19] VITALS: BP 129/85; TEMP 98
--- NOTE | 2020-01-17 15:40 | EKG ---
Test Reason : Blood Pressure : / mmHG Vent. Rate : 076 BPM Atrial Rate : 076 BPM P-R Int : 122 ms QRS Dur : 096 ms QT Int : 362 ms P-R-T Axes : 049 084 075 degrees QTc Int : 407 ms Normal sinus rhythm Normal ECG Confirmed by CHARLENE OROSCO DO ([id number]), editorial specialist JOSE CARTER ([id number]) on 01/17/2020 3:39:52 PM Referred By: Confirmed By:CHARLENE OROSCO DO
== END 2020-01-16 21:17 | disposition home or self-care (01) ==
LOC: ERS 13:43 → ERHOLD 16:00 → 2NO 22:06
PROVIDERS: ADMIT Family Medicine; ATTEND Family Medicine
PROC: 4A023N7 Measurement of Cardiac Sampling and Pressure, Left Heart, Percutaneous Approach (ICD-10-PCS; principal; 2020-01-16)
PROC: B2111ZZ Fluoroscopy of Multiple Coronary Arteries using Low Osmolar Contrast (ICD-10-PCS; 2020-01-16)
DX: I21.4 Non-ST elevation (NSTEMI) myocardial infarction (principal); E78.5 Hyperlipidemia, unspecified; I25.110 Atherosclerotic heart disease of native coronary artery with unstable angina pectoris; F17.290 Nicotine dependence, other tobacco product, uncomplicated; I10 Essential (primary) hypertension; Z79.82 Long term (current) use of aspirin; Z79.899 Other long term (current) drug therapy; Z88.5 Allergy status to narcotic agent; Z91.018 Allergy to other foods; Z95.5 Presence of coronary angioplasty implant and graft
CPT/HCPCS: 36415; 71046; 80048; 80053; 82550; 82553; 83690; 83880; 84484; 85025; 93005; 93458; 94760; C1769; J1644; Q9967

== ENCOUNTER 2020-09-16 08:09 | Outpatient (CLI) | payer BC ==
[2020-09-16 17:00] LABS: Hemoglobin 14.4 g/dL (14.0-18.0); Mean Corpuscular HGB CONC 33.3 G/DL (32.0-36.0); Mean Corpuscular Volume 90.2 fl (80.0-100.0); Mean Platelet Volume 9.6 fl (7.4-10.4); Platelet Count 231 10x3/uL (130-400); RBC Distribution Width 13.3 % (11.5-14.5); White Blood Cell (WBC) Count 7.3 10x3/uL (4.5-11.0)
[2020-09-16 17:51] LABS: Anion Gap 13 mmol/L (10-20); BUN (Urea Nitrogen) 14 mg/dL (8.9-20.6); Calc. Creatinine Clearance 0 mL/min (70-130); Calcium 8.7 mg/dL (7.8-10.44); Carbon Dioxide 23 mmol/L (22-29); Chloride 107 mmol/L (98-107); Glucose 105 mg/dL (70-105); Sodium 139 mmol/L (136-145)
[2020-09-17 05:17] LABS: SARS-CoV-2 PCR by NAA Not Detected (NotDetected)
== END 2020-09-16 08:10 | disposition home or self-care (01) ==
LOC: LABBT 08:09
PROVIDERS: ATTEND Urology
DX: Z01.818 Encounter for other preprocedural examination (principal); Z20.822 Contact with and (suspected) exposure to COVID-19; N48.0 Leukoplakia of penis; N47.1 Phimosis
CPT/HCPCS: 80048; 85027; 87635; U0003; U0005

== ENCOUNTER 2020-09-19 06:00 | Day surgery (SDC) | payer BC ==
[2020-09-17 12:08] VITALS: BMI 26.9
[2020-09-19] MEDS ORDERED: Fentanyl 100 MCG/2 ML VIAL ONE (06:28)
[2020-09-19] MEDS ORDERED: Midazolam HCl 2 mg/2 ml Vial ONE (06:28)
[2020-09-19] MEDS ORDERED: Bupivacaine 0.25% HCL 30 ML VIAL ONE (06:30)
[2020-09-19] MEDS ORDERED: PROPOFOL 200 MG/20 ML VIAL ONE (09:42)
[2020-09-19] MEDS ORDERED: Glycopyrrolate 0.2 MG/ML 5 ML SYRINGE ONE (09:42)
[2020-09-19] MEDS ORDERED: PHENYLEPHRINE-NS 100 MCG/ML 10 ML SYRINGE ONE (09:42)
[2020-09-19] MEDS ORDERED: Ketorolac Tromethamine 30 MG/ML VIAL ONE (09:42)
[2020-09-19] MEDS ORDERED: Dexamethasone 20 MG/5 ML VIAL ONE (09:42)
[2020-09-19] MEDS ORDERED: Ondansetron PF 4 MG/2 ML Vial ONE (09:42)
[2020-09-19] MEDS ORDERED: Lidocaine 1% PF 5 ML VIAL ONE (09:42)
== END 2020-09-19 09:51 | disposition home or self-care (01) ==
LOC: SDC 06:00
PROVIDERS: ATTEND Urology
PROC: 0VTTXZZ Resection of Prepuce, External Approach (ICD-10-PCS; principal; 2020-09-19)
DX: N47.1 Phimosis (principal); N48.0 Leukoplakia of penis; Z79.82 Long term (current) use of aspirin; Z79.899 Other long term (current) drug therapy; Z88.5 Allergy status to narcotic agent; Z91.018 Allergy to other foods
CPT/HCPCS: 88304; J1100; J1885; J2250; J2405; J2704; J3010; S0020

== ENCOUNTER 2023-02-26 13:01 | Inpatient (IN) | payer BC ==
[~2023-02-26 13:01] MED LIST: Iopamidol 370 76% 100 ML VIAL ONE
[2023-02-26] MEDS ORDERED: Heparin 10,000 UNITS/ 10 ML VIAL ONE ×2 (13:09→13:24)
[2023-02-26] MEDS ORDERED: Heparin 25,000 UNITS/D5W 500 ml bag ONE (13:09)
[2023-02-26] MEDS ORDERED: Nitroglycerin 0.4 MG TAB 1 EACH ONE (13:09)
[2023-02-26] MEDS ORDERED: Aspirin Chewable 81 MG TAB ONE (13:09)
[2023-02-26] MEDS ORDERED: Lidocaine 1% (PF) 30 ML VIAL ONE (13:24)
[2023-02-26] MEDS ORDERED: Adenosine 6 MG/2 ML VIAL ONE (13:24)
[2023-02-26] MEDS ORDERED: Verapamil 5 MG/2 ML VIAL ONE (13:24)
[2023-02-26] MEDS ORDERED: Nitroglycerin 50 MG/250 ML BOT 0 ML ONE (13:24)
[2023-02-26 13:27] LABS: #Basophils 0.1 thou/uL (0.0-0.2); #Eosinphils 0.2 thou/uL (0.0-0.7); #Monocytes 0.9 thou/uL (0.11-0.59); #Neutrophils 6.2 thou/uL (1.40-6.50); %Basophils 0.5 % (0.0-1.0); %Lymphocytes 23.7 % (21.0-51.0); %Neutrophils 64.1 % (42.0-75.0); Hemoglobin 17.7 g/dL (14.0-18.0); Mean Corpuscular HGB CONC 34.6 g/dL (32.0-36.0); Mean Corpuscular Hemoglobin 30.9 pg (27.0-31.0); Mean Corpuscular Volume 89.2 fl (78.0-98.0); Mean Platelet Volume 9.1 fL (7.4-10.4); Platelet Count 251 10x3/uL (130-400); Red Blood Cell (RBC) Count 5.73 mill/uL (4.70-6.10); White Blood Cell (WBC) Count 9.7 10x3/uL (4.8-10.8)
[2023-02-26 13:42] LABS: PTT 24.3 sec (22.9-36.1)
[2023-02-26] MEDS ORDERED: Atropine Sulfate 1 mg/10 ml Syringe ONE (13:42)
[2023-02-26] MEDS ORDERED: Ondansetron PF 4 MG/2 ML Vial ONE (13:42)
[2023-02-26 13:50] LABS: ALT (SGPT) 84 U/L (8-55); AST (SGOT) 51 U/L (5-34); Alkaline Phosphatase 100 U/L (40-110); Anion Gap 20 mmol/L (10-20); BUN (Urea Nitrogen) 15 mg/dL (8.4-25.7); Bilirubin, Total 0.8 mg/dL (0.2-1.2); Calc. Creatinine Clearance 0 mL/min (70-130); Calcium 10.8 mg/dL (7.8-10.44); Carbon Dioxide 21 mmol/L (22-29); Chloride 105 mmol/L (98-107); Estimated GFR 48; Globulin 3.7 g/dL (2.4-3.5); Glucose 114 mg/dL (70-105); Potassium 4.7 mmol/L (3.5-5.1); Protein, Total 8.7 g/dL (6.0-8.3); Sodium 141 mmol/L (136-145)
[2023-02-26] MEDS ORDERED: PHENYLEPHRINE-NS 100 MCG/ML 10 ML SYRINGE ONE ×3 (14:13→15:55)
[2023-02-26] MEDS ORDERED: Fentanyl 250 MCG/5 ML VIAL ONE ×2 (14:36→16:19)
[2023-02-26] MEDS ORDERED: Midazolam HCl 2 mg/2 ml Vial ONE ×2 (14:36)
[2023-02-26] MEDS ORDERED: Albumin 5% 250 ML ONE (14:44)
[2023-02-26] MEDS ORDERED: Aminocaproic Acid 5 GM/20 ML VIAL ONE ×2 (14:44→15:16)
[2023-02-26] MEDS ORDERED: Vecuronium 10 MG VIAL ONE ×3 (14:44→15:16)
[2023-02-26] MEDS ORDERED: Phenylephrine 10 MG/ML VIAL ONE (14:45)
[2023-02-26] MEDS ORDERED: Vasopressin 20 UNITS/ML VIAL ONE (14:45)
[2023-02-26] MEDS ORDERED: Magnesium 5 GM/10 ML VIAL ONE (15:16)
[2023-02-26] MEDS ORDERED: Mannitol 12.5 GM/50 ML ONE (15:16)
[2023-02-26] MEDS ORDERED: Rocuronium Bromide 10 MG/ML (10ML VIAL) ONE (15:16)
[2023-02-26] MEDS ORDERED: Papaverine 60 MG/2 ML VIAL ONE (15:16)
[2023-02-26] MEDS ORDERED: Thrombin 5000 UNITS/5 ML VIAL ONE (15:16)
[2023-02-26] MEDS ORDERED: EPINEPHrine 1 MG/ML AMP ONE (15:16)
[2023-02-26] MEDS ORDERED: Lidocaine 2% PF 100 mg/5 ml Syringe ONE (15:16)
[2023-02-26] MEDS ORDERED: Heparin 30,000 units/30 ml VIAL ONE (15:16)
[2023-02-26] MEDS ORDERED: Vancomycin 1 GM VIAL ONE (15:16)
[2023-02-26] MEDS ORDERED: Succinylcholine 200 MG/10 ml SYRINGE FS ONE (15:16)
[2023-02-26] MEDS ORDERED: Calcium Chloride 1 GM/10 ML Abboject SYRINGE ONE (15:16)
[2023-02-26] MEDS ORDERED: Sodium Bicarb 50 MEQ/50 ML VIAL ONE (15:16)
[2023-02-26] MEDS ORDERED: Cardioplegic Soln 1,000 ML BAG ONE (15:16)
[2023-02-26] MEDS ORDERED: Heparin 5,000 UNITS/ML VIAL ONE (15:16)
[2023-02-26] MEDS ORDERED: Protamine Sulfate 250 MG/25 ML VIAL ONE (15:16)
[2023-02-26] MEDS ORDERED: Potassium Chloride 60 MEQ/30 ML VIAL ONE (15:16)
[2023-02-26] MEDS ORDERED: Dexamethasone 4 mg/ml Vial ONE (16:43)
[2023-02-26] MEDS ORDERED: Bupivacaine HCl 0.5%/Epinephrine 1:200,000/PF 30 ml Vial ONE (16:43)
[2023-02-26 17:52] LABS: Actual Bicarbonate (HCO3a) 21.8 mEq/L (22-28); Base Excess (BEa) -4.1 mEq/L (-2.0 to +3.0); CO2 Tension 42.8 mmHg (35.0-45.0); Calcium, Ionized (arterial) 1.09 mmol/L (1.12-1.30); Carboxyhemoglobin (COHb) 0.6 gm% (0.0-3.0); Hematocrit-ABG 45 % (42.0-52.0); Hemoglobin (Hb) 15.2 g/dL (14.0-18.0); O2 Tension (PaO2), arterial 197.7 mmHg (80.0-100.0); Potassium - ABG Lab 5.21 mmol/L (3.70-5.30); pH, Arterial 7.325 (7.35-7.45)
[2023-02-26] MEDS ORDERED: D5 1/2 NS w/20 mEq KCL 1,000 ML IV SCH (17:56)
[2023-02-26] MEDS ORDERED: Ondansetron PF 4 MG/2 ML Vial IVP PRN (17:56)
[2023-02-26] MEDS ORDERED: Magnesium 2 GM/50 ML(in water) 2 GM in Premix Bag 1 BAG IVPB SCH (17:56)
[2023-02-26] MEDS ORDERED: Ipratropium/Albuterol 3 ML NEB NEB PRN (17:56)
[2023-02-26] MEDS ORDERED: Bisacodyl 5 MG TAB PO PRN (17:56)
[2023-02-26] MEDS ORDERED: Acetaminophen 325 MG TAB PO PRN (17:56)
[2023-02-26] MEDS ORDERED: Nitroglycerin 50 MG/250 ML BOT 250 ML IVPB PRN (17:56)
[2023-02-26] MEDS ORDERED: Bisacodyl 10 MG SUPP PR PRN (17:56)
[2023-02-26] MEDS ORDERED: fentaNYL 50 mcg/mL 1 mL Vial SLOW IVP PRN (17:56)
[2023-02-26] MEDS ORDERED: traMADol HCl 50 MG TAB PO PRN ×2 (17:56)
[2023-02-26] MEDS ORDERED: Guaifenesin DM 100-10/5 ML UDCUP PO PRN (17:56)
[2023-02-26] MEDS ORDERED: Mag-Al 1200 mg/1200 mg/30 ML UDCUP PO PRN (17:56)
[2023-02-26] MEDS ORDERED: NOREPINEPHRINE 8 MG/250 ML-D5W 250 ML IVPB PRN (17:56)
[2023-02-26] MEDS ORDERED: Potassium Chloride 20 MEQ/100 ML PREMIX BAG IVPB PRN (17:56)
[2023-02-26] MEDS ORDERED: Hetastarch 6% 500 ML 500 ML IVPB PRN (17:56)
[2023-02-26] MEDS ORDERED: hydrALAZINE 20 MG/ML VIAL SLOW IVP PRN (17:56)
[2023-02-26 18:04] LABS: Mean Corpuscular HGB CONC 33.9 g/dL (32.0-36.0); Mean Corpuscular Hemoglobin 31.1 pg (27.0-31.0); Mean Corpuscular Volume 91.8 fl (78.0-98.0); Mean Platelet Volume 9.3 fL (7.4-10.4); Platelet Count 205 10x3/uL (130-400); RBC Distribution Width 13.1 % (11.5-14.5); Red Blood Cell (RBC) Count 4.73 mill/uL (4.70-6.10)
[2023-02-26 18:06] LABS: Delete Auto Diff?? YES; Hemoglobin 14.7 g/dL (14.0-18.0); Manual Diff?? YES; White Blood Cell (WBC) Count 24.6 10x3/uL (4.8-10.8)
[2023-02-26] MEDS ORDERED: Dextrose 5% in Water 1,000 ML IV PRN (18:15)
[2023-02-26] MEDS ORDERED: Glucagon 1 MG/ML KIT SC PRN (18:15)
[2023-02-26] MEDS ORDERED: Dextrose 50% Abboject 50 ML SYRINGE SLOW IVP PRN (18:15)
[2023-02-26] MEDS ORDERED: HUMULIN R 100 UNITS in Sodium Chloride 0.9% 100 ML IVPB SCH (18:15)
[2023-02-26 18:17] LABS: INR-International Normal Ratio 1.2; PTT 28.1 sec (22.9-36.1); Prothrombin Time 15.7 sec (12.0-14.7)
[2023-02-26 18:33] LABS: Band 15 % (5-11); Burr Cells MODERATE= 6-15 cells HPF (0-1); CellaVision Operator ID LAB.MJL; Lymphocytes 7 % (21-51); Monocytes 1 % (0-10); Myelocyte 1 % (0-0); Neutrophil 76 % (42-75); Nucleated RBC (Manual Ct) 1 % (0); Ovalocytes SLIGHT = 2-5 cells HPF (0-1); Platelet Adequacy Comment Platelets Normal; Poikilocytosis SLIGHT = 6-15 cells HPF (0-5); Polychromasia SLIGHT = 2-3 cells HPF (0-2); Total Cell Count 101
[2023-02-26 18:34] LABS: Anion Gap 15 mmol/L (10-20); BUN (Urea Nitrogen) 13 mg/dL (8.4-25.7); Calc. Creatinine Clearance 0 mL/min (70-130); Carbon Dioxide 18 mmol/L (22-29); Chloride 109 mmol/L (98-107); Estimated GFR 70; Glucose 135 mg/dL (70-105); Potassium 5.3 mmol/L (3.5-5.1); Sodium 137 mmol/L (136-145)
[2023-02-26] MEDS: Insulin Regular 300 UNITS/3 ML VIAL SC PRN ×3 (18:54→23:26)
[2023-02-26] MEDS: Morphine 2 MG/ML VIAL SLOW IVP PRN ×2 (19:28→19:46)
[2023-02-26] MEDS: fentaNYL 50 mcg/mL 1 mL Vial SLOW IVP PRN ×2 (20:13→22:23)
[2023-02-26] MEDS ORDERED: Famotidine/PF 20 mg/2ml Vial SLOW IVP SCH (21:00)
[2023-02-26 21:34] LABS: Actual Bicarbonate (HCO3a) 18.7 mEq/L (22-28); Base Excess (BEa) -5.3 mEq/L (-2.0 to +3.0); Calcium, Ionized (arterial) 1.04 mmol/L (1.12-1.30); Hematocrit-ABG 42 % (42.0-52.0); Hemoglobin (Hb) 14.4 g/dL (14.0-18.0); O2 Tension (PaO2), arterial 118.2 mmHg (80.0-100.0); Potassium - ABG Lab 4.41 mmol/L (3.70-5.30); pH, Arterial 7.384 (7.35-7.45)
[2023-02-26 21:35] LABS: Puncture Site ALINE
[2023-02-26] MEDS ORDERED: Sodium Chloride 0.9% 1,000 ML IV SCH (22:00)
[2023-02-26] MEDS: CEFAZOLIN 2 GM in Sodium Chloride 0.9% 100 ML IVPB SCH (22:27)
[2023-02-26] MEDS: Atorvastatin Calcium 40 MG TAB PO SCH (22:28)
[2023-02-26 23:28] LABS: Hemoglobin 13.7 g/dL (14.0-18.0)
[2023-02-26 23:45] LABS: Potassium 4.2 mmol/L (3.5-5.1)
[2023-02-27] MEDS: fentaNYL 50 mcg/mL 1 mL Vial SLOW IVP PRN ×2 (03:30→09:13)
[2023-02-27 04:47] LABS: #Monocytes 1.4 thou/uL (0.11-0.59); #Neutrophils 13.3 thou/uL (1.40-6.50); %Basophils 0.2 % (0.0-1.0); %Lymphocytes 7.3 % (21.0-51.0); %Monocytes 8.5 % (0.0-10.0); %Neutrophils 83.3 % (42.0-75.0); Mean Corpuscular HGB CONC 32.6 g/dL (32.0-36.0); Mean Corpuscular Hemoglobin 30.3 pg (27.0-31.0); Mean Corpuscular Volume 92.9 fl (78.0-98.0); Mean Platelet Volume 9.7 fL (7.4-10.4); Platelet Count 206 10x3/uL (130-400); RBC Distribution Width 13.4 % (11.5-14.5); Red Blood Cell (RBC) Count 4.62 mill/uL (4.70-6.10); White Blood Cell (WBC) Count 15.9 10x3/uL (4.8-10.8)
[2023-02-27 05:12] LABS: Anion Gap 15 mmol/L (10-20); BUN (Urea Nitrogen) 12 mg/dL (8.4-25.7); Calc. Creatinine Clearance 113 mL/min (70-130); Calcium 8.3 mg/dL (7.8-10.44); Carbon Dioxide 23 mmol/L (22-29); Chloride 106 mmol/L (98-107); Estimated GFR 77; Glucose 148 mg/dL (70-105); Potassium 4.6 mmol/L (3.5-5.1); Sodium 139 mmol/L (136-145)
[2023-02-27] MEDS: Insulin Regular 300 UNITS/3 ML VIAL SC PRN (06:38)
[2023-02-27] MEDS: CEFAZOLIN 2 GM in Sodium Chloride 0.9% 100 ML IVPB SCH ×2 (08:55→14:17)
[2023-02-27] MEDS: Magnesium 2 GM/50 ML(in water) 2 GM in Premix Bag 1 BAG IVPB SCH (08:55)
[2023-02-27] MEDS ORDERED: Furosemide 40 MG TAB PO SCH ×2 (09:00→09:15)
[2023-02-27] MEDS ORDERED: Aspirin 325 MG TAB PO SCH (09:00)
[2023-02-27] MEDS ORDERED: Aspirin 81 mg Enteric Coated Tablet PO SCH (09:30)
[2023-02-27] MEDS: Ketorolac Tromethamine 30 MG/ML VIAL IVP SCH ×3 (11:05→23:18)
[2023-02-27] MEDS: Furosemide 40 MG TAB PO SCH (13:55)
[2023-02-27] MEDS: Carvedilol 3.125 MG TAB PO SCH (17:46)
[2023-02-27] MEDS: Potassium Chloride 10 MEQ TAB PO SCH (17:46)
[2023-02-27] MEDS ORDERED: Insulin Glargine 30 UNITS/0.3 ML VIAL SC PRN (18:05)
[2023-02-27] MEDS: Atorvastatin Calcium 40 MG TAB PO SCH (23:19)
[2023-02-28 04:31] LABS: #Eosinphils 0.1 thou/uL (0.0-0.7); #Monocytes 1.6 thou/uL (0.11-0.59); #Neutrophils 10.1 thou/uL (1.40-6.50); %Basophils 0.1 % (0.0-1.0); %Eosinophils 0.5 % (0.0-10.0); %Lymphocytes 14.4 % (21.0-51.0); %Monocytes 11.4 % (0.0-10.0); %Neutrophils 73.2 % (42.0-75.0); Hemoglobin 11.6 g/dL (14.0-18.0); Mean Corpuscular HGB CONC 33.4 g/dL (32.0-36.0); Mean Corpuscular Hemoglobin 31.2 pg (27.0-31.0); Mean Corpuscular Volume 93.3 fl (78.0-98.0); Mean Platelet Volume 9.5 fL (7.4-10.4); Platelet Count 167 10x3/uL (130-400); RBC Distribution Width 13.6 % (11.5-14.5); Red Blood Cell (RBC) Count 3.72 mill/uL (4.70-6.10); White Blood Cell (WBC) Count 13.9 10x3/uL (4.8-10.8)
[2023-02-28 04:51] LABS: Anion Gap 15 mmol/L (10-20); BUN (Urea Nitrogen) 19 mg/dL (8.4-25.7); Calc. Creatinine Clearance 104 mL/min (70-130); Calcium 8.4 mg/dL (7.8-10.44); Carbon Dioxide 24 mmol/L (22-29); Chloride 100 mmol/L (98-107); Estimated GFR 70; Glucose 126 mg/dL (70-105); Potassium 3.6 mmol/L (3.5-5.1); Sodium 135 mmol/L (136-145)
[2023-02-28] MEDS: Ketorolac Tromethamine 30 MG/ML VIAL IVP SCH ×3 (05:43→16:36)
[2023-02-28 06:11] VITALS: BMI 31.8
[2023-02-28] MEDS: Potassium Chloride 10 MEQ TAB PO SCH ×2 (07:15→16:36)
[2023-02-28] MEDS: Carvedilol 3.125 MG TAB PO SCH ×2 (07:15→16:36)
[2023-02-28] MEDS: Magnesium 2 GM/50 ML(in water) 2 GM in Premix Bag 1 BAG IVPB SCH (08:28)
[2023-02-28] MEDS: Aspirin 81 mg Enteric Coated Tablet PO SCH (08:28)
[2023-02-28] MEDS: Furosemide 40 MG TAB PO SCH ×2 (08:29→13:38)
[2023-02-28] MEDS: Clopidogrel Bisulfate 75 MG TAB PO SCH (08:29)
[2023-02-28] MEDS: Atorvastatin Calcium 40 MG TAB PO SCH (20:35)
[2023-03-01] MEDS: Ketorolac Tromethamine 30 MG/ML VIAL IVP SCH ×3 (00:46→11:52)
[2023-03-01] MEDS ORDERED: Guaifenesin DM 100-10/5 ML UDCUP PO PRN (02:18)
[2023-03-01] MEDS ORDERED: Mineral Oil ENEMA PR PRN (02:18)
[2023-03-01] MEDS ORDERED: Nitroglycerin 0.4 MG TAB (25 Tab Bottle) SL PRN (02:18)
[2023-03-01] MEDS ORDERED: Artificial Tear Sol 15 ML BOT EA EYE PRN (02:18)
[2023-03-01] MEDS ORDERED: Milk Of Magnesia 30 ML UDCUP PO PRN (02:18)
[2023-03-01] MEDS ORDERED: Mag-Al 1200 mg/1200 mg/30 ML UDCUP PO PRN (02:18)
[2023-03-01] MEDS ORDERED: Zolpidem Tartrate 5 MG TAB PO PRN (02:18)
[2023-03-01] MEDS ORDERED: diphenhydrAMINE 25 MG CAP PO PRN (02:18)
[2023-03-01 09:24] VITALS: TEMP 98.1
[2023-03-01] MEDS: Potassium Chloride 10 MEQ TAB PO SCH (10:54)
[2023-03-01] MEDS: Clopidogrel Bisulfate 75 MG TAB PO SCH (10:54)
[2023-03-01] MEDS: Aspirin 81 mg Enteric Coated Tablet PO SCH (10:54)
[2023-03-01] MEDS: Carvedilol 3.125 MG TAB PO SCH (11:03)
[2023-03-01] MEDS: Furosemide 40 MG TAB PO SCH (11:04)
[2023-03-01 11:46] VITALS: BP 118/63
== END 2023-03-01 11:46 | disposition home or self-care (01) | DRG 232 ==
LOC: ERS 13:01 → CCL 13:33 → CCU 16:59 → 2NO 02-28 21:48
PROVIDERS: ADMIT Internal Medicine Cardiovascular Disease; ATTEND Internal Medicine Cardiovascular Disease
PROC: 4A023N7 Measurement of Cardiac Sampling and Pressure, Left Heart, Percutaneous Approach (ICD-10-PCS; principal; 2023-02-26)
PROC: 02C03ZZ Extirpation of Matter from Coronary Artery, One Artery, Percutaneous Approach (ICD-10-PCS; 2023-02-26)
PROC: 021009W Bypass Coronary Artery, One Artery from Aorta with Autologous Venous Tissue, Open Approach (ICD-10-PCS; 2023-02-26)
PROC: 06BQ4ZZ Excision of Left Saphenous Vein, Percutaneous Endoscopic Approach (ICD-10-PCS; 2023-02-26)
PROC: B2111ZZ Fluoroscopy of Multiple Coronary Arteries using Low Osmolar Contrast (ICD-10-PCS; 2023-02-26)
PROC: B2151ZZ Fluoroscopy of Left Heart using Low Osmolar Contrast (ICD-10-PCS; 2023-02-26)
PROC: 5A1221Z Performance of Cardiac Output, Continuous (ICD-10-PCS; 2023-02-26)
PROC: 02L70CK Occlusion of Left Atrial Appendage with Extraluminal Device, Open Approach (ICD-10-PCS; 2023-02-26)
PROC: 4A133R1 Monitoring of Arterial Saturation, Peripheral, Percutaneous Approach (ICD-10-PCS; 2023-02-26)
PROC: 3E033XZ Introduction of Vasopressor into Peripheral Vein, Percutaneous Approach (ICD-10-PCS; 2023-02-26)
DX: I21.19 ST elevation (STEMI) myocardial infarction involving other coronary artery of inferior wall (principal); I25.10 Atherosclerotic heart disease of native coronary artery without angina pectoris; I10 Essential (primary) hypertension; E78.5 Hyperlipidemia, unspecified; Z95.5 Presence of coronary angioplasty implant and graft; Z98.890 Other specified postprocedural states; Z90.49 Acquired absence of other specified parts of digestive tract; Z79.82 Long term (current) use of aspirin; Z79.899 Other long term (current) drug therapy; Z88.5 Allergy status to narcotic agent; Z91.018 Allergy to other foods; Z87.891 Personal history of nicotine dependence
CPT/HCPCS: 36415; 36416; 36430; 71045; 80048; 80053; 82805; 84484; 85025; 85347; 85610; 85730; 86850; 86900; 86901; 93005; 93010; 93458; 93798; 94002; 94150; 96374; 96376; 97139; C1751; C1757; C1769; C1874; C1887; J0153; J0171; J0461; J1100; J1644; J1815; J1885; J2001; J2150; J2250; J2272; J2370; J2405; J2440; J2720; J3010; J3370; J3475; J3480; J3490; J7050; P9045; Q9967; S0017; S0028